=== PATIENT | male | born 1955 | race Caucasian/White ===

== ENCOUNTER 2016-12-26 08:24 | Emergency (ER) | payer OTHER ==
[~2016-12-26] VITALS: Ht 177.8 cm; Wt 75.4 kg
[~2016-12-26 08:24] MED LIST: ALBU.5I NEB; CLAR250T PO; HYDR-3535 PO; IBUP-232 PO; XANA1TAB2 PO; ZITH250T PO
[2016-12-26 08:33] VITALS: BP 86/63; PULSE 84; RESP 16; TEMP 97.3; O2SAT 96
[2016-12-26] MEDS ORDERED: SODIUM CHLOR 0.9% 1000 ML INJ 1,000 ML IV ONE (09:00)
--- NOTE | 2016-12-26 09:29 | PD ---
HPI Chief Complaint: Skin Problem Time Seen by Provider: 08:38 Travel History International Travel<30 days: No Contact w/Intl Traveler<30days: No Traveled to known affect area: No History of Present Illness HPI This is a 61-year-old male who has a history of a chronic JMUA infection of the lungs for which he has had multiple surgeries including a lobectomy and a lower flap reconstruction at [facility] who presents to the emergency department with drainage from his chest wall. He says that his most recent surgery was over a year ago with cardiothoracic surgery at [facility]. He's been on antibiotics ever since he had his surgery. He says that last evening he felt some fullness in his right back and then this morning he woke up with M pus all over his shirt. He does say he's been sweaty for the past 3 nights. He denies any severe pain or increasing shortness of breath. PFSH Past Medical History Arthritis: Yes Anxiety: Yes Depression: Yes Cancer: No Cardiovascular Problems: No High Cholesterol: Yes COPD: Yes Diabetes: No Diminished Hearing: No Endocrine: No Gastrointestinal Disorders: Yes (REFLUX) Genitourinary: Yes (difficulty urinating at night,) Hepatitis: No Hiatal Hernia: No Hypertension: No Immune Disorder: No Implanted Vascular Access Dvce: No Musculoskeletal: Yes ( ) Neurologic: No Psychiatric: Yes (ANXIETY, DEPRESSION,claustophobia) Reproductive: No Respiratory: Yes (LOBECTOMY RIGHT UPPER ) Immunizations Current: Yes Thyroid Disease: No Past Surgical History AICD: No Body Medical Devices: RIGHT CHEST TUBE Joint Replacement: No Oral Surgery: Yes Pacemaker: No Thoracic Surgery: Yes (R UPPER LOBECTOMY, CHEST TUBE,right lung infection I & D ) Other Surgery: Yes (right upper lobectomy. ) Social History Alcohol Use: No (WINE EVERY NIGHT 1/2 gallon) Tobacco Use: No (quit JUL 2012) Substance Use: No Allergies-Medications (Allergen,Severity, Reaction): Coded Allergies: No Known Allergies (Verified , 12/26/16) Reported Meds & Prescriptions Reported Meds & Active Scripts Active Reported Azithromycin 500 Mg Tab 500 Mg PO DAILY Sivextro (Tedizolid Phosphate) 200 Mg Tab 200 Mg PO DAILY Clofazimine (Bulk) 1 Powd Review of Systems Except as stated in HPI: all other systems reviewed are Neg Physical Exam Narrative GENERAL:Well appearing, no acute distress SKIN: Small 1 cm opening in the right upper back between 2 ribs spaces with copious purulent drainage particularly when the patient coughs and exhales. No surrounding fluctuance or induration. HEAD: Atraumatic. Normocephalic. EYES: Pupils equal and round. No injection or drainage. ENT: Moist mucous membranes NECK: Trachea midline. CARDIOVASCULAR: Regular rate and rhythm. No murmur appreciated. RESPIRATORY: Clear to auscultation. Breath sounds equal bilaterally. GASTROINTESTINAL: Abdomen soft, non-tender, nondistended. MUSCULOSKELETAL: No obvious deformities. NEUROLOGICAL: Awake and alert. No obvious cranial nerve deficits. Moving all extremities. PSYCHIATRIC: Appropriate mood and affect; insight and judgment normal. Data Data Last Documented VS Vital Signs Date Time Temp Pulse Resp B/P Pulse Ox O2 Delivery O2 Flow Rate FiO2 12/26/16 13:27 68 18 86/40 97 Room Air 12/26/16 08:33 97.3 Orders Complete Blood Count With Diff (12/26/16 08:52) Comprehensive Metabolic Panel (12/26/16 08:52) Prothrombin Time / Inr (Pt) (12/26/16 08:52) Act Partial Throm Time (Ptt) (12/26/16 08:52) Lactic Acid Sepsis Protocol (12/26/16 08:52) Urinalysis - C+S If Indicated (12/26/16 08:52) Blood Culture (12/26/16 08:52) Chest, Single Ap (12/26/16 08:52) Blood Glucose (12/26/16 08:52) Ecg Monitoring (12/26/16 08:52) Iv Access Insert/Monitor (12/26/16 08:52) Oximetry (12/26/16 08:52) Oxygen Administration (12/26/16 08:52) Sodium Chlor 0.9% 1000 Ml Inj (Ns 1000 M (12/26/16 09:00) Wound Culture And Gram Stain (12/26/16 09:26) Vancomycin Inj (Vancomycin Inj) (12/26/16 09:30) Ct Thorax/ Chest W Iv Contrast (12/26/16 ) Cefepime Inj (Maxipime Inj) (12/26/16 09:30) Iohexol 350 Inj (Omnipaque 350 Inj) (12/26/16 10:38) Labs Laboratory Tests Test 12/26/16 12/26/16 09:25 10:49 White Blood Count 5.8 TH/MM3 Red Blood Count 3.57 MIL/MM3 Hemoglobin 9.9 GM/DL Hematocrit 31.1 % Mean Corpuscular Volume 87.2 FL Mean Corpuscular Hemoglobin 27.8 PG Mean Corpuscular Hemoglobin 31.9 % Concent Red Cell Distribution Width 15.3 % Platelet Count 298 TH/MM3 Mean Platelet Volume 7.7 FL Neutrophils (%) (Auto) 74.9 % Lymphocytes (%) (Auto) 10.2 % Monocytes (%) (Auto) 11.1 % Eosinophils (%) (Auto) 3.2 % Basophils (%) (Auto) 0.6 % Neutrophils # (Auto) 4.4 TH/MM3 Lymphocytes # (Auto) 0.6 TH/MM3 Monocytes # (Auto) 0.6 TH/MM3 Eosinophils # (Auto) 0.2 TH/MM3 Basophils # (Auto) 0.0 TH/MM3 CBC Comment DIFF FINAL Differential Comment Prothrombin Time 12.6 SEC Prothromb Time International 1.1 RATIO Ratio Activated Partial 31.8 SEC Thromboplast Time Sodium Level 136 MEQ/L Potassium Level 3.4 MEQ/L Chloride Level 98 MEQ/L Carbon Dioxide Level 28.2 MEQ/L Anion Gap 10 MEQ/L Blood Urea Nitrogen 7 MG/DL Creatinine 0.93 MG/DL Estimat Glomerular Filtration 82 ML/MIN Rate Random Glucose 97 MG/DL Lactic Acid Level 1.6 mmol/L Calcium Level 8.3 MG/DL Total Bilirubin 0.8 MG/DL Aspartate Amino Transf 26 U/L (AST/SGOT) Alanine Aminotransferase 23 U/L (ALT/SGPT) Alkaline Phosphatase 127 U/L Total Protein 6.6 GM/DL Albumin 2.5 GM/DL Urine Collection Type CATH Urine Color YELLOW Urine Turbidity CLEAR Urine pH 6.0 Urine Specific [place] 1.011 Urine Protein NEG mg/dL Urine Glucose (UA) NEG mg/dL Urine Ketones NEG mg/dL Urine Occult Blood NEG Urine Nitrite NEG Urine Bilirubin NEG Urine Leukocyte Esterase NEG Urine RBC 0-3 /hpf Urine Squamous Epithelial 0-5 /hpf Cells Urine Renal Epithelial Cells 0-5 /hpf Microscopic Urinalysis Comment CATH-CULT NOT IND Urine Collection Time 10:49 [facility] Medical Decision Making Medical Screen Exam Complete: Yes Emergency Medical Condition: Yes Interpretation(s) Afebrile, blood pressure is low, no tachycardia No leukocytosis Anemia Mild hypokalemia Lactic acid is 1.6 Urinalysis: Negative for infection Last 24 hours Impressions Chest X-Ray 12/26/16 0852 Signed Impressions: Service Date/Time: Saturday, December 26, 2016 09:14 - CONCLUSION: 1. 4.7 x 4.3 cm mass in the right mid lung region containing an air-fluid level. Difficult to ascertain whether this is intra-or extrathoracic on single AP view. Differential considerations include soft tissue abscess versus lung abscess/mass. 2. Streaky right lower lobe airspace disease and probable trace pleural effusion. 3. Stable post surgical features of right upper lobectomy Jeyson Mueller MD Chest CT 12/26/16 0000 Signed Impressions: Service Date/Time: Saturday, December 26, 2016 10:16 - CONCLUSION: 1. Evidence of interval surgery on the right. 2. Cavity with air-fluid level again seen in the right upper hemithorax. This is extraparenchymal. Unchanged in size. 3. Old granulomatous disease. 4. New focal areas of tree in bud opacity in the lingula and lower lobe on the left. Initial diagnosis includes atypical mycobacterial infection and chronic aspiration. 5. New atelectasis in the right middle lobe. 6. Moderate left upper lobe emphysema unchanged. Landen Salazar MD Differential Diagnosis Abscess, sepsis, pneumonia, empyema Narrative Course This is a 61-year-old male who presents to the emergency department with a complex medical history. He was seen at [facility] and was diagnosed with an JUMA infection had a lobectomy and then subsequently had 9 months of intrapleural antibiotic therapy. He had a lesser flap performed at [facility] and since then has been doing well but has been maintain on chlorpromazine, suspect stroke and azithromycin. Yesterday evening he developed purulent drainage from his right upper back. On exam he has a centimeter defect which expresses pus when he inhales or coughs. He is hypotensive but otherwise vital signs are reassuring and he has no leukocytosis. Labs are obtained which were all reassuring. CT imaging demonstrates an extra parenchymal fluid collection which is concerning for reoccurrence of the patient's empyema. I spoke to who is the patient's toll line mechanic at [facility]. He agrees that the patient should be transported to [facility] for further management. I discussed this with the patient and he adamantly wants to transport himself. I expressed a lot of concern regarding his blood pressure as he could rapidly become septic in the setting of empyema. He says he understands this and he still wants to transport himself. He says "if I then that'll be my time, I only have about 2 years to live anyway". I think the patient is able to make his own decisions. He was given copies of his paperwork, imaging study and hopefully will transport himself right up to [facility]. Diagnosis Primary Impression: Lung infection Patient Instructions: General Instructions Additional Instructions: It is very important that you follow-up at [facility] in the emergency department immediately. We already discussed her case with Dr. Mendoza and Dr. Perez Med/Other Pt SpecificInfo: No Change to Meds Disposition: 01 DISCHARGE HOME Condition: Stable Marissa Orozco MD December 26, 2016 09:29
[2016-12-26] MEDS ORDERED: CEFEPIME INJ 2,000 MG in SODIUM CHLORIDE 0.9% INJ 100 ML IV ONE (09:30)
[2016-12-26] MEDS ORDERED: VANCOMYCIN INJ 1,150 MG in SODIUM CHLOR 0.9% 250 ML INJ 250 ML IV ONE (09:30)
[2016-12-26 09:44] LABS: AUTOMATED NEUTROPHIL # 4.4 TH/MM3 (1.8-7.7); BASOPHIL % 0.6 % (0.0-2.0); EOSINOPHIL # 0.2 TH/MM3 (0-0.4); EOSINOPHIL % 3.2 % (0.0-4.0); HEMATOCRIT 31.1 % (39.0-51.0); HEMO FLAGS DIFF FINAL; LYMPH % 10.2 % (9.0-44.0); LYMPHOCYTE # 0.6 TH/MM3 (1.0-4.8); MEAN CELL VOLUME 87.2 FL (80.0-100.0); MEAN CORPUSCULAR HEMOGLOBIN 27.8 PG (27.0-34.0); MEAN CORPUSCULAR HGB CONC 31.9 % (32.0-36.0); MONO % 11.1 % (0.0-8.0); NEUT % 74.9 % (16.0-70.0); PLATELET COUNT 298 TH/MM3 (150-450); RED BLOOD COUNT 3.57 MIL/MM3 (4.50-5.90); RED CELL DISTRIBUTION WIDTH 15.3 % (11.6-17.2); WHITE BLOOD COUNT 5.8 TH/MM3 (4.0-11.0)
--- NOTE | 2016-12-26 09:46 | RADHPO ---
EXAM DATE/TIME: 12/26/2016 09:14 [facility] COMPARISON: CHEST SINGLE AP, April 26, 2013, 7:39. INDICATIONS : Fever, abscess on upper back. MEDICAL HISTORY : Emphysema. SURGICAL HISTORY : right lobectomy ENCOUNTER: Initial ACUITY: 3 days PAIN SCORE: 3/10 LOCATION: Bilateral chest FINDINGS: Postsurgical features of prior right upper lobectomy are again noted. There is a poorly defined appro ximately 4.7 x 4.3 cm masslike density in the right mid lung which appears to contain an air-fluid le elise. Streaky airspace disease is noted in the right lower lobe. Left lung is clear. Cardiomediastinal contours are grossly stable. Remainder of the exam is unchanged. CONCLUSION: 1. 4.7 x 4.3 cm mass in the right mid lung region containing an air-fluid level. Difficult to ascerta in whether this is intra-or extrathoracic on single AP view. Differential considerations include soft tissue abscess versus lung abscess/mass. 2. Streaky right lower lobe airspace disease and probable trace pleural effusion. 3. Stable post surgical features of right upper lobectomy Jeyson Mueller MD on December 26, 2016 at 9:36 Board Certified Radiologist. This report was verified electronically.
[2016-12-26 09:54] LABS: APTT (PATIENT) 31.8 SEC (24.3-30.1); INTERNATIONAL NORMALIZED RATIO 1.1 RATIO; PROTHROMBIN TIME - PATIENT 12.6 SEC (9.8-11.6)
[2016-12-26 09:55] LABS: CHLORIDE 98 MEQ/L (98-107); POTASSIUM 3.4 MEQ/L (3.5-5.1); SODIUM (NA) 136 MEQ/L (136-145)
[2016-12-26 10:02] LABS: ANION GAP 10 MEQ/L (5-15); BICARBONATE 28.2 MEQ/L (21.0-32.0)
[2016-12-26 10:05] LABS: ALT (GPT) 23 U/L (12-78); GLOMERULAR FILTRATION RATE 82 ML/MIN (>89)
[2016-12-26 10:07] LABS: TOTAL BILIRUBIN ADULT 0.8 MG/DL (0.2-1.0)
[2016-12-26 10:08] LABS: ALKALINE PHOSPHATASE 127 U/L (45-117); AST (GOT) 26 U/L (15-37)
[2016-12-26 10:11] LABS: BLOOD UREA NITROGEN 7 MG/DL (7-18)
[2016-12-26] MEDS ORDERED: IOHEXOL 350 MG/ML 10 ML VIAL (for RAD DIAG) IV ONE (10:38)
[2016-12-26 10:57] LABS: BLOOD, URINE NEG (NEG); GLUCOSE,URINE NEG (NEG); KETONE, URINE NEG (NEG); NITRITE,URINE NEG (NEG)
[2016-12-26 11:06] LABS: METHOD OF COLLECTION CATH; URINE COLOR YELLOW (YELLW/STRAW)
[2016-12-26 11:07] LABS: COMMENT (UR) CATH-CULT NOT IND; CULTURE IF INDICATED CATH CULTURE NOT IND; RBC, URINE 0-3 /hpf (0-3); RENAL EPITHELIAL CELLS 0-5 /hpf; SQUAMOUS EPITHELIAL CELL URINE 0-5 /hpf (0-5)
--- NOTE | 2016-12-26 11:33 | RADHPO ---
EXAM DATE/TIME: 12/26/2016 10:16 [facility] COMPARISON: CT THORAX W/O CONTRAST, July 21, 2013, 12:36. INDICATIONS : Cough, shortness of breath. IV CONTRAST: 70 cc Omnipaque 350 (iohexol) IV RADIATION DOSE: 10.60 CTDIvol (mGy) MEDICAL HISTORY : Chronic obstructive pulmonary disease. History of JUMA lung disease SURGICAL HISTORY : Lobectomy. ENCOUNTER: Initial ACUITY: 1 day PAIN SCALE: 0/10 LOCATION: chest TECHNIQUE: Volumetric scanning of the chest was performed. Using automated exposure control and adjustment of t he mA and/or kV according to patient size, radiation dose was kept as low as reasonably achievable to obtain optimal diagnostic quality images. FINDINGS: LUNGS: Large cavity is again identified at the right lung apex. This is unchanged in size compared to the pr ior study of 07/21/2013. Air-fluid level is again seen within the cavity. New adjacent extraparenchym al scarring/fat density is identified, likely representing postsurgical change. New anterior right mi ddle lobe volume loss/atelectasis. Calcified granulomas again seen in the right lower lobe. Rounded a telectasis in the posterior right lower lobe has increased in size. Multiple calcified granulomas in the left lung. Moderate severity left upper lobe pulmonary parenchymal emphysema. Mild tree in bud op acity in the lateral aspect of the lingula is new. Mild tree in bud opacity in the posterior left low er lobe is new. MEDIASTINUM: Coronary artery calcification. Shift of the mediastinum to the right. AXILLAE: Within normal limits. No lymphadenopathy. SKELETAL: Postsurgical findings in the right-sided ribs. MISCELLANEOUS: Upper abdomen unremarkable. CONCLUSION: 1. Evidence of interval surgery on the right. 2. Cavity with air-fluid level again seen in the right upper hemithorax. This is extraparenchymal. Un changed in size. 3. Old granulomatous disease. 4. New focal areas of tree in bud opacity in the lingula and lower lobe on the left. Initial diagnosi s includes atypical mycobacterial infection and chronic aspiration. 5. New atelectasis in the right middle lobe. 6. Moderate left upper lobe emphysema unchanged. Landen Salazar MD on December 26, 2016 at 11:23 Board Certified Radiologist. This report was verified electronically.
[2016-12-26] MEDS ORDERED: [UNRECOGNIZED DRUG - CODE] (13:25)
[2016-12-26] MEDS ORDERED: TEDI1TAB PO (13:25)
[2016-12-26] MEDS ORDERED: AZIT500T2 PO (13:25)
[2016-12-26 13:27] VITALS: BP 86/40; PULSE 68; RESP 18; O2SAT 97
== END 2016-12-26 14:37 | disposition home or self-care (01) ==
LOC: PHED 08:24
DX: A31.9 Mycobacterial infection, unspecified (principal); J98.11 Atelectasis; J43.9 Emphysema, unspecified; D64.9 Anemia, unspecified; E87.6 Hypokalemia; J44.9 Chronic obstructive pulmonary disease, unspecified; M19.90 Unspecified osteoarthritis, unspecified site; E78.00 Pure hypercholesterolemia, unspecified; K21.9 Gastro-esophageal reflux disease without esophagitis
CPT/HCPCS: 71010; 71260; 80053; 81001; 83605; 85025; 85610; 85730; 87040; 87070; 96365; 96367; 99285; J0692; J3370; J7030; J7050; Q9967

== ENCOUNTER → 2017-01-24 | Outpatient (CLI) | payer OTHER ==
[~2017-01-24] MED LIST changes: -ALBU.5I NEB; +AZIT500T2 PO; -CLAR250T PO; -HYDR-3535 PO; -IBUP-232 PO; +TEDI1TAB PO; -XANA1TAB2 PO; -ZITH250T PO; +[UNRECOGNIZED DRUG - CODE]
[2017-01-24 13:09] LABS: BLOOD GAS BASE EXCESS -0.3 mmol/L (-2-2); BLOOD GAS CARBOXYHEMOGLOBIN 1.6 % (0-4); BLOOD GAS HCO3 23 mmol/L (22-26); BLOOD GAS METHEMOGLOBIN 1.3 % (0-2); BLOOD GAS O2 HGB SATURATION 94 % (90-100); BLOOD GAS OXYGEN CONTENT 12.4 Vol % (12.0-20.0); BLOOD GAS PCO2 35 mmHg (38-42); BLOOD GAS PO2 97 mmHg (61-120); BLOOD GAS TOTAL HGB 9.3 G/DL (12.0-16.0); CRITICAL VALUE NO; DRAW SITE RT RADIAL; FIO2 21 %; NUMBER OF ARTERIAL PUNCTURES 1; STAT NO; TEMP CORR TO 98.6; ULNAR PULSE PRESENT
--- NOTE | 2017-02-01 10:00 | RSPPFT ---
DATE OF PROCEDURE: 01/24/17 COMMENTS: Spirometry shows FVC of 2.6 at 57% of predicted, FEV1 of 1.5 at 42%, FEV1/FVC ratio is decreased. Flow is decreased at FEF 25, FEF 50, FEF 75 and FEF 25-75. There is no significant response after bronchodilator treatment. Lung volumes show residual volume is increased. TLC is decreased. Diffusion capacity is severely decreased. Flow volume loop indicates an obstructive pattern. 6-minute walk test shows no de-saturation. IMPRESSION: 1. Moderately severe obstructive lung disease. 2. No response after bronchodilator treatment. 3. Lung volumes show hyperinflation. 4. Severe loss in diffusion capacity. 5. 6-minute walk test shows no de-saturation.
== END ==
LOC: HRSP 12:11
PROVIDERS: ATTEND Specialist
DX: J44.9 Chronic obstructive pulmonary disease, unspecified (principal)
CPT/HCPCS: 36600; 82805; 94060; 94620; 94726; 94729

== ENCOUNTER 2017-03-14 23:01 | Emergency (ER) | payer OTHER ==
[~2017-03-14] VITALS: Ht 177.8 cm; Wt 75.0 kg
[2017-03-14 23:10] VITALS: BP 96/63; PULSE 82; RESP 20; TEMP 99.4; O2SAT 96
[2017-03-14] MEDS ORDERED: SODIUM CHLORIDE 0.9% FLUSH 10 ML FLUSH IVF PRN (23:30)
--- NOTE | 2017-03-14 23:47 | PD ---
HPI . Bleeding from chest wall Chief Complaint: Bleeding Time Seen by Provider: 23:08 Travel History International Travel<30 days: No Contact w/Intl Traveler<30days: No Traveled to known affect area: No History of Present Illness HPI This patient presents with the chief complaint of bleeding from his right chest. Onset was today. The bleeding has been mild. It is exacerbated by coughing or sneezing. No fever. This patient is an extremely poor historian. He has a long history of JUMA in his right lung. He has had a previous lobectomy. He treated with a 9 month course of an intrapleural antibiotics. He is followed closely by pulmonology, infectious disease and cardiothoracic surgery at [facility]. He states that he was most recently seen by his infectious disease doctor 2 days ago. This patient was here on December 26 with the chief complaint of purulent drainage from his right posterior chest wall. He was subsequently transferred to [facility] and was reportedly hospitalized there for 15 days. PFSH Past Medical History Arthritis: Yes Anxiety: Yes Depression: Yes Cancer: No Cardiovascular Problems: No High Cholesterol: Yes COPD: Yes Diabetes: No Diminished Hearing: No Endocrine: No Gastrointestinal Disorders: Yes (REFLUX) Genitourinary: Yes (difficulty urinating at night,) Hepatitis: No Hiatal Hernia: No Hypertension: No Immune Disorder: No Implanted Vascular Access Dvce: No Musculoskeletal: Yes ( ) Neurologic: No Psychiatric: Yes (ANXIETY, DEPRESSION,claustophobia) Reproductive: No Respiratory: Yes Immunizations Current: Yes Thyroid Disease: No Past Surgical History AICD: No Body Medical Devices: RIGHT CHEST TUBE Joint Replacement: No Oral Surgery: Yes Pacemaker: No Thoracic Surgery: Yes (R UPPER LOBECTOMY, CHEST TUBE,right lung infection I & D ) Other Surgery: Yes (right upper lobectomy. ) Social History Alcohol Use: No (WINE EVERY NIGHT 1/2 gallon) Tobacco Use: No (quit JUL 2012) Substance Use: No Allergies-Medications (Allergen,Severity, Reaction): Coded Allergies: No Known Allergies (Verified , 03/14/17) Reported Meds & Prescriptions Reported Meds & Active Scripts Active Reported Lortab (Hydrocodone-Acetaminophen) 10-325 Mg Tab 1 Tab PO Q6H PRN Azithromycin 500 Mg Tab 500 Mg PO DAILY Clofazimine (Bulk) 1 Powd Review of Systems ROS Limitations: Poor Historian Except as stated in HPI: all other systems reviewed are Neg General / Constitutional: No: Fever, Chills Cardiovascular: No: Chest Pain or Discomfort Respiratory: Positive: Other (bleeding from the right posterior chest wall), No: Cough, Shortness of Breath Physical Exam Narrative GENERAL: Awake and alert and in no acute distress. He is able to speak in complete sentences without any dyspnea. SKIN: Warm and dry. Surgical scar on the right chest wall. He had a small drop of blood in the surgical scar which appeared to have a bubble in it. HEAD: Atraumatic. Normocephalic. EYES: Pupils equal and round. Extraocular movements are intact. ENT: No nasal bleeding or discharge. Mucous membranes pink and moist. NECK: Trachea midline. Neck is supple. CARDIOVASCULAR: Regular rate and rhythm. RESPIRATORY: No accessory muscle use. Good breath sounds on the left. Diminished breath sounds on the right. His right chest wall as deformities compatible with the previous lobectomy. GASTROINTESTINAL: Abdomen soft, non-tender, nondistended. MUSCULOSKELETAL: No obvious deformities. No edema. NEUROLOGICAL: Awake and alert. No obvious cranial nerve deficits. Motor grossly within normal limits. Normal speech. PSYCHIATRIC: Appropriate mood and affect; insight and judgment normal. Data Data Last Documented VS Vital Signs Date Time Temp Pulse Resp B/P Pulse Ox O2 Delivery O2 Flow Rate FiO2 03/15/17 00:22 75 18 94/65 97 Room Air 03/14/17 23:10 99.4 Orders Sodium Chloride 0.9% Flush (Ns Flush) (03/14/17 23:30) Chest, Pa & Lat (03/14/17 23:49) [facility] Medical Decision Making Medical Screen Exam Complete: Yes Emergency Medical Condition: Yes Medical Record Reviewed: Yes (the patient was seen here on 12/26 with similar complaints. At that time, he had purulent drainage. Tonight he has bloody drainage. Nonetheless, from this record I was able to learn that he has a history of JUMA and is status post lobectomy and a 9 month treatment of intraoral antibiotics. CT done on 12/26 showed an empyema and he was subsequently transferred back to [facility].) Differential Diagnosis Differential diagnosis includes but is not limited to include coagulopathy, fistula, hemopneumothorax Narrative Course Patient presented with bleeding from his right posterior chest wall. Workup was ordered but patient refused. The only thing that he has agreed to his a chest x-ray. Last Impressions Chest X-Ray 03/14/17 1300 Signed Impressions: Service Date/Time: Wednesday, March 15, 2017 00:04 - CONCLUSION: 1. Stable deformity and volume loss of the right hemithorax with postoperative changes characteristic of prior upper lobectomy. 2. Airspace process in the right mid lung seen previously actually shows interval improvement. Scattered areas of pleural thickening and possible small right-sided effusion. 3. Patchy nodular densities in the left perihilar distribution are stable and probably postinflammatory. Stable emphysematous changes in the left upper lung.. Aric Sullivan MD The chest x-ray was independently viewed by me. The patient will be discharged with instructions to follow-up at [facility] Diagnosis Primary Impression: Bleeding Disposition: 01 DISCHARGE HOME Condition: Stable Danette Goodman MD Mar 14, 2017 23:47
[2017-03-14] MEDS ORDERED: HYDR-3535 PO (23:53)
[2017-03-15 00:22] VITALS: BP 94/65; PULSE 75; RESP 18; O2SAT 97
--- NOTE | 2017-03-15 01:19 | RADRPT ---
EXAM DATE/TIME: 03/15/2017 00:04 [facility] COMPARISON: CT THORAX W CONTRAST, December 26, 2016, 10:16. CHEST SINGLE AP, December 26, 2016, 9:14. INDICATIONS : Patient complain of pain, bleeding from old right chest tube sight. Patient has been coughing up bloo d for 3 hours. MEDICAL HISTORY : Emphysema. Chronic obstructive pulmonary disease. JUMA Infection SURGICAL HISTORY : Right upper lobectomy, Prev. right sided chest tube ENCOUNTER: Initial ACUITY: 1 day PAIN SCORE: 5/10 LOCATION: Right posterior chest FINDINGS: PA and lateral views of the chest demonstrate persistent volume loss and deformity of the right hemit horax dense consolidation previously seen in the right mid chest actually shows interval improvement. Absent pulmonary markings in the right upper lobe suggest a parenchymal void with some regional pleu ral thickening and possible pleural effusion. Stable patchy nodular densities in the left perihilar d istribution are probably postinflammatory. Stable emphysematous changes in the left upper lung. Lungs are otherwise clear. Heart size is normal. Osseous structures are grossly intact. CONCLUSION: 1. Stable deformity and volume loss of the right hemithorax with postoperative changes characteristic of prior upper lobectomy. 2. Airspace process in the right mid lung seen previously actually shows interval improvement. Scatte red areas of pleural thickening and possible small right-sided effusion. 3. Patchy nodular densities in the left perihilar distribution are stable and probably postinflammato ry. Stable emphysematous changes in the left upper lung.. Aric Sullivan MD on March 15, 2017 at 1:13 Board Certified Radiologist. This report was verified electronically.
[2017-03-15 01:45] VITALS: BP 99/67; PULSE 70; RESP 18; TEMP 97.5; O2SAT 99
== END 2017-03-15 02:06 | disposition home or self-care (01) ==
LOC: PHED 23:01
DX: R58 Hemorrhage, not elsewhere classified (principal)
CPT/HCPCS: 71020; 99283

== ENCOUNTER 2017-08-23 17:52 | Emergency (ER) | payer OTHER ==
[~2017-08-23] VITALS: Ht 177.8 cm; Wt 68.0 kg
[~2017-08-23 17:52] MED LIST changes: +HYDR-3535 PO; -TEDI1TAB PO
[2017-08-23] MEDS ORDERED: [UNRECOGNIZED DRUG - CODE] PO (18:08)
[2017-08-23 18:10] VITALS: BP 93/58; PULSE 92; RESP 16; O2SAT 98
[2017-08-23] MEDS ORDERED: DOCU100C15 PO (19:00)
[2017-08-23] MEDS ORDERED: VORI200T6 PO (19:00)
--- NOTE | 2017-08-23 19:02 | PD ---
HPI Chief Complaint: Wound/Suture/Staple Re-Check Time Seen by Provider: 18:12 Travel History International Travel<30 days: No Contact w/Intl Traveler<30days: No Traveled to known affect area: No History of Present Illness HPI 62-year-old male brought in from [facility] via ambulance with complicated wound to the right posterior thorax. Patient was seen in [facility] with history of PYOTHORAX without fistula, drained by their surgeons, and transferred to [facility] yesterday for outpatient rehabilitation care. Patient is under contact and droplet precautions. Patient has a large incision at the right back below the scapula which is required to have packing removed and irrigation with 1-2 L of saline daily. After irrigation the patient is to lean backwards to allow fluid to drain, and a large stamp dressing is to be packed into the chest wall anteriorly towards the apex which requires a ring forceps to pack the entire wound. Both incisions are to be covered with abdominal pad dressings which should be drainage twice daily. Medications are as written. The nursing facility felt that they were unable to perform this level of wound care at their facility which is why he was transferred here. Patient is otherwise stable and has no acute complaints. He has no known drug allergies. PFSH Past Medical History Arthritis: Yes Anxiety: Yes Depression: Yes Cancer: No Cardiovascular Problems: No High Cholesterol: Yes COPD: Yes Diabetes: No Diminished Hearing: No Endocrine: No Gastrointestinal Disorders: Yes (REFLUX) Genitourinary: Yes (difficulty urinating at night, enlarged prostate ) Hepatitis: No Hiatal Hernia: No Hypertension: No Immune Disorder: No Implanted Vascular Access Dvce: No Neurologic: No Psychiatric: Yes (claustophobia) Reproductive: No Respiratory: Yes Immunizations Current: Yes Thyroid Disease: No Past Surgical History AICD: No Body Medical Devices: RIGHT CHEST TUBE Joint Replacement: No Oral Surgery: Yes Pacemaker: No Thoracic Surgery: Yes (R UPPER LOBECTOMY, CHEST TUBE,right lung infection I & D ) Other Surgery: Yes (right upper lobectomy, Elloesser flap, right lung biopsy) Social History Alcohol Use: No Tobacco Use: No (quit JUL 2012) Substance Use: No Allergies-Medications (Allergen,Severity, Reaction): Coded Allergies: No Known Allergies (Verified Adverse Reaction, Unknown, 08/23/17) Reported Meds & Prescriptions Reported Meds & Active Scripts Active Reported Voriconazole 200 Mg Tab 200 Mg PO Q12H Docusate Sodium 100 Mg Cap 100 Mg PO BID Clofazimine 1 Gm Powder 50 PO Review of Systems ROS Limitations: Clinical Condition, Poor Historian Except as stated in HPI: all other systems reviewed are Neg General / Constitutional: No: Fever, Chills Eyes: No: Visual changes HENT: No: Headaches Cardiovascular: No: Chest Pain or Discomfort Respiratory: No: Shortness of Breath Gastrointestinal: No: Abdominal Pain Genitourinary: No: Dysuria Musculoskeletal: No: Pain Skin: No Rash Neurologic: No: Weakness Psychiatric: No: Depression Endocrine: No: Polydipsia Hematologic/Lymphatic: No: Easy Bruising Physical Exam Narrative GENERAL: Patient appears well medicated but oriented to person and place. SKIN: Warm and dry. Normal color. Normal turgor. Patient has a large open wound with good granulation tissue to the posterior right thorax, with small amount of purulent drainage noted. There is no significant erythema or obvious cellulitis. Packing is removed and replaced by myself as per discharge instructions from [facility] with nursing help. HEAD: Atraumatic. Normocephalic. EYES: Pupils equal and round. No scleral icterus. No injection or drainage. ENT: No nasal bleeding or discharge. Mucous membranes pink and moist. Pharynx is clear. Airway is patent. NECK: Trachea midline. Supple. CARDIOVASCULAR: Regular rate and rhythm. RESPIRATORY: No accessory muscle use. Clear to auscultation. Breath sounds equal bilaterally. GASTROINTESTINAL: Abdomen soft, non-tender, nondistended. Hepatic and splenic margins not palpable. MUSCULOSKELETAL: Extremities without clubbing, cyanosis, or edema. No obvious deformities. NEUROLOGICAL: Awake and alert. No obvious cranial nerve deficits. Motor grossly within normal limits. Five out of 5 muscle strength in the arms and legs. Normal speech. PSYCHIATRIC: Appropriate mood and affect; insight and judgment normal. Data Data Last Documented VS Vital Signs Date Time Temp Pulse Resp B/P (MAP) Pulse Ox O2 Delivery O2 Flow Rate FiO2 08/23/17 18:10 92 16 93/58 (70) 98 MDM Medical Decision Making Medical Screen Exam Complete: Yes Emergency Medical Condition: Yes Medical Record Reviewed: Yes Differential Diagnosis Patient status post I&D PYOTHORAX without fistula. Need for daily wound care. Need for appropriate usp facility placement. Narrative Course Patient has IV in the right forearm. No labs ordered at this time. Wound is unpacked, irrigated and repacked per instructions from [facility] by myself and nursing staff. Patient is to return to [facility], and proper shelter placement should be arranged by their case management. Patient can return to emergency department for dressing changes if necessary in the interim. Diagnosis Primary Impression: Pyothorax without fistula Additional Impression: Encounter for postoperative wound care Patient Instructions: General Instructions Additional Instructions: Patient has IV in the right forearm. No labs ordered at this time. Wound is unpacked, irrigated and repacked per instructions from [facility] by myself and nursing staff. Patient is to return to [facility], and proper shelter placement should be arranged by their case management. Patient can return to emergency department for dressing changes if necessary in the interim. Med/Other Pt SpecificInfo: No Change to Meds Disposition: 01 DISCHARGE HOME Condition: Stable Adilson Charles Aug 23, 2017 19:02
[2017-08-23 19:04] VITALS: TEMP 98
[2017-08-23] MEDS ORDERED: ALBU6.7H INH (19:04)
[2017-08-23] MEDS ORDERED: TAMS5CAP PO (19:04)
[2017-08-23] MEDS ORDERED: DOXY1TAB6 PO (19:04)
[2017-08-23] MEDS ORDERED: OXYC1CAP PO (19:04)
[2017-08-23] MEDS ORDERED: SPIRCAP INH (19:04)
[2017-08-23] MEDS ORDERED: ALPR1TAB3 PO (19:04)
[2017-08-23] MEDS ORDERED: CHEL50TA (19:04)
[2017-08-23] MEDS ORDERED: FERR325T18 PO (19:04)
[2017-08-23] MEDS ORDERED: AZIT500T2 PO (19:04)
[2017-08-23] MEDS ORDERED: IPRA0.06 EACH NARE (19:04)
[2017-08-23] MEDS ORDERED: ADVA250A INH (19:04)
[2017-08-23 19:22] VITALS: BP 92/60; PULSE 90; O2SAT 95
== END 2017-08-23 23:07 | disposition home or self-care (01) ==
LOC: NEPC 17:52
DX: J86.9 Pyothorax without fistula (principal); Z51.89 Encounter for other specified aftercare; F41.9 Anxiety disorder, unspecified; M19.90 Unspecified osteoarthritis, unspecified site; F32.9 Major depressive disorder, single episode, unspecified; E78.00 Pure hypercholesterolemia, unspecified; J44.9 Chronic obstructive pulmonary disease, unspecified; K21.9 Gastro-esophageal reflux disease without esophagitis; Z79.899 Other long term (current) drug therapy
CPT/HCPCS: 99283

== ENCOUNTER 2018-01-20 17:44 | Inpatient (IN) ==
[2018-01-26] MEDS ORDERED: Naloxone Inj 0.4 MG/ML Vial IV.PUSH PRN (00:01)
[2018-01-26] MEDS ORDERED: Ketorolac Inj 30 MG/ML (IVP) Vial IM PRN (00:01)
[2018-01-26] MEDS ORDERED: Acetaminophen 325 MG Tablet PO PRN ×2 (00:01)
[2018-01-26] MEDS ORDERED: Bisacodyl 10 MG Supp RECTAL PRN (01:00)
[2018-01-26] MEDS ORDERED: Aluminum/Magnesium/Simethacone Susp 30 ML UDC PO PRN (01:00)
[2018-01-26] MEDS: Nystatin Liq 500,000 UNIT/5 ML UDC SWISH-SWAL SCH ×4 (03:37→19:59)
[2018-01-26 05:37] LABS: Chloride 103 meq/L (98-107); Potassium 4.2 meq/L (3.5-5.1); Sodium 137 meq/L (136-145)
[2018-01-26 05:43] LABS: Anion Gap 4 meq/L (5-15); Blood Urea Nitrogen 17 mg/dL (7-18); Calcium 7.6 mg/dL (8.5-10.1); Carbon Dioxide 29.7 meq/L (21.0-32.0); Glucose,Random 104 mg/dL (74-106)
[2018-01-26 05:46] LABS: Glomerular Filtration Rate Greater Than 89 mL/min (>89)
[2018-01-26] MEDS: Vancomycin Inj 1 GM/200 ML PIGGYBACK IV.SIG SCH ×2 (06:08→23:22)
--- NOTE | 2018-01-26 08:04 | P.PNIM ---
Subjective Interval history: Patient seen and evaluated today in follow-up for respiratory failure secondary to pneumonia. No issues overnight. Wound care addressed with patient and nursing team. Hemoglobin has dropped a bit. GI consult appreciated Physical Exam Vital signs: Vital Signs 01/26/18 00:07 01/26/18 01:00 01/26/18 01:01 Temperature Pulse Rate 78 78 82 Respiratory Rate 32 H 31 H 31 H Blood Pressure 108/71 Pulse Oximetry 98 98 99 01/26/18 02:00 01/26/18 02:01 01/26/18 03:00 Temperature Pulse Rate 72 76 72 Respiratory Rate 13 15 26 H Blood Pressure 108/71 102/70 Pulse Oximetry 100 99 98 01/26/18 03:01 01/26/18 04:00 01/26/18 04:01 Temperature 97.3 F L Pulse Rate 76 66 64 Respiratory Rate 25 H 27 H 34 H Blood Pressure 104/71 97/75 L 97/75 L Pulse Oximetry 97 99 99 01/26/18 05:00 01/26/18 05:01 01/26/18 06:00 Temperature Pulse Rate 74 72 68 Respiratory Rate 22 23 25 H Blood Pressure 100/69 Pulse Oximetry 100 98 100 01/26/18 06:01 01/26/18 07:00 01/26/18 07:01 Temperature Pulse Rate 70 66 68 Respiratory Rate 28 H 14 15 Blood Pressure 85/58 L 85/59 L Pulse Oximetry 99 99 98 Intake & Output 01/25/18 01/26/18 01/26/18 18:59 06:59 18:59 Weight 71.7 kg Results - Labs CBC & Chem 7: 01/25/18 06:00 01/26/18 04:25 Labs: Laboratory Results - last 24 hr 01/23/18 01/23/18 01/23/18 16:20 19:12 19:50 WBC RBC Hgb Hct MCV MCH MCHC RDW Plt Count MPV Neut % (Auto) Lymph % (Auto) [place] % (Auto) Eos % (Auto) Baso % (Auto) Neut # (Auto) Lymph # (Auto) [place] # (Auto) Eos # (Auto) Baso # (Auto) CBC Comment Puncture Site RT RADIAL Patient Temperature 98.6 HCO3 25 Base Excess 0.8 O2 Saturation 87 L* ABG pH 7.42 ABG pCO2 39 ABG pO2 63 ABG O2 Content 12.5 ABG Carboxyhemoglobin 0.3 ABG Methemoglobin 0.9 Hemoglobin 10.2 L O2 Delivery Device NASAL CANNULA Liter Flow 4 Sodium Potassium Chloride Carbon Dioxide Anion Gap BUN Creatinine Estimated GFR Random Glucose Calcium Magnesium Troponin I LESS THAN 0.02 L Stl C.difficile Tox PCR NEGATIVE St C. diff Tox Epid 027 PRESUMPTIVE NEGATIVE Vancomycin Trough 01/24/18 01/24/18 01/25/18 04:20 04:20 06:00 WBC 4.9 RBC 2.92 L Hgb 8.7 L Hct 25.8 L MCV 88.5 MCH 29.9 MCHC 33.8 RDW 18.4 H Plt Count 261 MPV 7.5 Neut % (Auto) 83.4 H Lymph % (Auto) 10.1 [place] % (Auto) 6.1 Eos % (Auto) 0.2 Baso % (Auto) 0.2 Neut # (Auto) 4.1 Lymph # (Auto) 0.5 L [place] # (Auto) 0.3 Eos # (Auto) 0.0 Baso # (Auto) 0.0 CBC Comment DIFF FINAL Puncture Site Patient Temperature HCO3 Base Excess O2 Saturation ABG pH ABG pCO2 ABG pO2 ABG O2 Content ABG Carboxyhemoglobin ABG Methemoglobin Hemoglobin O2 Delivery Device Liter Flow Sodium Potassium Chloride Carbon Dioxide Anion Gap BUN Creatinine 0.86 Estimated GFR 90 Random Glucose Calcium Magnesium 2.2 Troponin I Stl C.difficile Tox PCR St C. diff Tox Epid 027 Vancomycin Trough 01/25/18 01/26/18 10:30 04:25 WBC RBC Hgb Hct MCV MCH MCHC RDW Plt Count MPV Neut % (Auto) Lymph % (Auto) [place] % (Auto) Eos % (Auto) Baso % (Auto) Neut # (Auto) Lymph # (Auto) [place] # (Auto) Eos # (Auto) Baso # (Auto) CBC Comment Puncture Site Patient Temperature HCO3 Base Excess O2 Saturation ABG pH ABG pCO2 ABG pO2 ABG O2 Content ABG Carboxyhemoglobin ABG Methemoglobin Hemoglobin O2 Delivery Device Liter Flow Sodium 137 137 Potassium 4.4 4.2 Chloride 103 103 Carbon Dioxide 28.3 29.7 Anion Gap 6 4 L BUN 19 H 17 Creatinine 0.86 0.76 Estimated GFR 90 Greater than 89 Random Glucose 127 H 104 Calcium 8.0 L 7.6 L Magnesium Troponin I Stl C.difficile Tox PCR St C. 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 Per patient recent cultures of the open wound did show MRSA Patient will continue with IV cefepime, vancomycin and azithromycin Follow-up with ID and pulmonary Continue to support emphysematous lungs (2) Anemia Code(s): D64.9 - Anemia, unspecified Status: Acute Plan: Status post 1 unit packed red blood cells Patient with severe iron deficiency status post IV iron infusion Hemoglobin has dropped to 8.7 Possible GI bleed (3) Alcohol dependence Code(s): F10.20 - Alcohol dependence, uncomplicated Status: Acute Plan: Currently stable without signs of withdrawal Xanax as needed (4) COPD exacerbation Code(s): J44.1 - Chronic obstructive pulmonary disease with (acute) exacerbation Status: Acute (5) Hypotension Code(s): I95.9 - Hypotension, unspecified Status: Acute Plan: Stable, and baseline hypotension is tolerated and asymptomatic (6) Malnutrition Code(s): E46 - Unspecified protein-calorie malnutrition Status: Acute Plan: Continue with dietary supplement Dietary and nutritional consult appreciated (7) Urinary retention Code(s): R33.9 - Retention of urine, unspecified Status: Acute (8) Atypical chest pain Code(s): R07.89 - Other chest pain Status: Acute Plan: Likely secondary to GI symptoms Upper endoscopy scheduled Saturday for GI consult Continue Carafate, nystatin, Maalox and Protonix twice daily - Plan Follow clinically Likely home with home health care when stable
[2018-01-26] MEDS ORDERED: IPRATROPIUM NASAL SCH (09:00)
[2018-01-26] MEDS: MethylPREDNISolone Sod Succinate Inj 40 MG/ML Vial IV.PUSH SCH ×2 (09:09→21:30)
[2018-01-26] MEDS: Enoxaparin Inj 40 MG/0.4 ML Syringe SQ SCH ×2 (09:10→09:55)
[2018-01-26] MEDS: Ferrous Sulfate 325 MG Tablet PO SCH (09:11)
[2018-01-26] MEDS: Lactobacillus Acidophilus/L. Spores Tablet PO SCH ×2 (09:11→21:00)
[2018-01-26] MEDS: Azithromycin 250 MG Tablet PO SCH (09:11)
[2018-01-26] MEDS: Sucralfate Liq 1 GM/10 ML UDC PO SCH ×3 (09:35→18:01)
[2018-01-26] MEDS ORDERED: Vancomycin Consult Pharmacy 1 EACH OTHER SCH (14:00)
[2018-01-26] MEDS: Budesonide-Formoterol 160/4.5 MCG 6 GM Inhaler INH SCH ×2 (18:02→20:05)
[2018-01-26] MEDS: Tiotropium Bromide 18 MCG/ACT Inhaler INH SCH (18:02)
--- NOTE | 2018-01-26 20:55 | P.PNGI ---
Subjective Interval history: Feeling better, breathing easier Physical Exam Vital signs: Vital Signs 01/26/18 00:07 01/26/18 01:00 01/26/18 01:01 Temperature Pulse Rate 78 78 82 Respiratory Rate 32 H 31 H 31 H Blood Pressure 108/71 Pulse Oximetry 98 98 99 01/26/18 02:00 01/26/18 02:01 01/26/18 03:00 Temperature Pulse Rate 72 76 72 Respiratory Rate 13 15 26 H Blood Pressure 108/71 102/70 Pulse Oximetry 100 99 98 01/26/18 03:01 01/26/18 04:00 01/26/18 04:01 Temperature 97.3 F L Pulse Rate 76 66 64 Respiratory Rate 25 H 27 H 34 H Blood Pressure 104/71 97/75 L 97/75 L Pulse Oximetry 97 99 99 01/26/18 05:00 01/26/18 05:01 01/26/18 06:00 Temperature Pulse Rate 74 72 68 Respiratory Rate 22 23 25 H Blood Pressure 100/69 Pulse Oximetry 100 98 100 01/26/18 06:01 01/26/18 07:00 01/26/18 07:01 Temperature Pulse Rate 70 66 68 Respiratory Rate 28 H 14 15 Blood Pressure 85/58 L 85/59 L Pulse Oximetry 99 99 98 01/26/18 08:00 01/26/18 08:01 01/26/18 09:00 Temperature Pulse Rate 70 72 76 Respiratory Rate 19 23 64 H Blood Pressure 90/66 L Pulse Oximetry 96 96 83 L 01/26/18 09:01 01/26/18 10:00 01/26/18 10:29 Temperature Pulse Rate 76 72 Respiratory Rate 36 H 43 H Blood Pressure 105/64 Pulse Oximetry 99 95 94 L 01/26/18 11:00 01/26/18 11:06 01/26/18 12:00 Temperature Pulse Rate 76 78 68 Respiratory Rate 31 H 27 H 24 Blood Pressure 98/67 L Pulse Oximetry 100 98 98 01/26/18 13:00 01/26/18 14:00 01/26/18 15:00 Temperature Pulse Rate 76 62 70 Respiratory Rate 27 H 26 H 25 H Blood Pressure Pulse Oximetry 99 96 01/26/18 15:44 01/26/18 16:00 01/26/18 17:00 Temperature Pulse Rate 58 L 62 62 Respiratory Rate 24 21 19 Blood Pressure Pulse Oximetry 100 100 01/26/18 18:00 01/26/18 20:04 01/26/18 20:14 Temperature 97.3 F L Pulse Rate 84 Respiratory Rate 35 H 18 Blood Pressure Pulse Oximetry 95 Intake & Output 01/26/18 01/26/18 01/27/18 06:59 18:59 06:59 Intake Total 600 / 600 780 / 780 Output Total 1025 / 1025 450 / 450 Balance -425 / -425 330 / 330 Weight 67.2 kg Intake: IV 300 / 300 Maxipime Inj 2,000 MG In NS Inj 100 / 100 100 ML @ 200 mls/hr IV.SIG Q8HR MATTHEW Rx#:[id number] Vancomycin Inj 1 gm In 200 ml @ 200 / 200 200 mls/hr IV.SIG Q18H MATTHEW Rx# :[id number] Oral 600 / 600 480 / 480 Output: Urine 450 / 450 Urine Amount (Catheter) 1025 / 1025 Indwelling Urethral Catheter 1025 / 1025 Other: # Bowel Movements 3 0 - Urinary Catheter Management Indwelling Urethral Catheter Cath placed during this visit: no Results - Labs CBC & Chem 7: 01/25/18 06:00 01/26/18 04:25 Laboratory Results - last 24 hr 01/23/18 01/23/18 01/23/18 16:20 19:12 19:50 WBC RBC Hgb Hct MCV MCH MCHC RDW Plt Count MPV Neut % (Auto) Lymph % (Auto) [place] % (Auto) Eos % (Auto) Baso % (Auto) Neut # (Auto) Lymph # (Auto) [place] # (Auto) Eos # (Auto) Baso # (Auto) CBC Comment Puncture Site RT RADIAL Patient Temperature 98.6 HCO3 25 Base Excess 0.8 O2 Saturation 87 L* ABG pH 7.42 ABG pCO2 39 ABG pO2 63 ABG O2 Content 12.5 ABG Carboxyhemoglobin 0.3 ABG Methemoglobin 0.9 Hemoglobin 10.2 L O2 Delivery Device NASAL CANNULA Liter Flow 4 Sodium Potassium Chloride Carbon Dioxide Anion Gap BUN Creatinine Estimated GFR Random Glucose Calcium Magnesium Troponin I LESS THAN 0.02 L Stl C.difficile Tox PCR NEGATIVE St C. diff Tox Epid 027 PRESUMPTIVE NEGATIVE Vancomycin Trough 01/24/18 01/24/18 01/25/18 04:20 04:20 06:00 WBC 4.9 RBC 2.92 L Hgb 8.7 L Hct 25.8 L MCV 88.5 MCH 29.9 MCHC 33.8 RDW 18.4 H Plt Count 261 MPV 7.5 Neut % (Auto) 83.4 H Lymph % (Auto) 10.1 [place] % (Auto) 6.1 Eos % (Auto) 0.2 Baso % (Auto) 0.2 Neut # (Auto) 4.1 Lymph # (Auto) 0.5 L [place] # (Auto) 0.3 Eos # (Auto) 0.0 Baso # (Auto) 0.0 CBC Comment DIFF FINAL Puncture Site Patient Temperature HCO3 Base Excess O2 Saturation ABG pH ABG pCO2 ABG pO2 ABG O2 Content ABG Carboxyhemoglobin ABG Methemoglobin Hemoglobin O2 Delivery Device Liter Flow Sodium Potassium Chloride Carbon Dioxide Anion Gap BUN Creatinine 0.86 Estimated GFR 90 Random Glucose Calcium Magnesium 2.2 Troponin I Stl C.difficile Tox PCR St C. diff Tox Epid 027 Vancomycin Trough 01/25/18 01/26/18 10:30 04:25 WBC RBC Hgb Hct MCV MCH MCHC RDW Plt Count MPV Neut % (Auto) Lymph % (Auto) [place] % (Auto) Eos % (Auto) Baso % (Auto) Neut # (Auto) Lymph # (Auto) [place] # (Auto) Eos # (Auto) Baso # (Auto) CBC Comment Puncture Site Patient Temperature HCO3 Base Excess O2 Saturation ABG pH ABG pCO2 ABG pO2 ABG O2 Content ABG Carboxyhemoglobin ABG Methemoglobin Hemoglobin O2 Delivery Device Liter Flow Sodium 137 137 Potassium 4.4 4.2 Chloride 103 103 Carbon Dioxide 28.3 29.7 Anion Gap 6 4 L BUN 19 H 17 Creatinine 0.86 0.76 Estimated GFR 90 Greater than 89 Random Glucose 127 H 104 Calcium 8.0 L 7.6 L Magnesium Troponin I Stl C.difficile Tox PCR St C. diff Tox Epid 027 Vancomycin Trough 23.8 H Assessment and Plan - Plan Seen and examined, EGD/Dilation tomorrow - Attending Attestation GENERAL: SKIN: Warm and dry. HEAD: Normocephalic. EYES: No scleral icterus. No injection or drainage. NECK: Supple, trachea midline. No JVD or lymphadenopathy. CARDIOVASCULAR: Regular rate and rhythm without murmurs, gallops, or rubs. RESPIRATORY: Breath sounds equal bilaterally. No accessory muscle use. GASTROINTESTINAL: Abdomen soft, non-tender, nondistended. MUSCULOSKELETAL: No cyanosis, or edema. BACK: Nontender without obvious deformity. No CVA tenderness.
[2018-01-26] MEDS: CLOFAZIMINE PO SCH (21:00)
[2018-01-27] MEDS: Sucralfate Liq 1 GM/10 ML UDC PO SCH ×3 (03:57→20:12)
[2018-01-27] MEDS: Lactobacillus Acidophilus/L. Spores Tablet PO SCH ×3 (03:59→20:01)
[2018-01-27] MEDS: Tiotropium Bromide 18 MCG/ACT Inhaler INH SCH (09:41)
[2018-01-27] MEDS: Budesonide-Formoterol 160/4.5 MCG 6 GM Inhaler INH SCH ×2 (09:45→20:03)
[2018-01-27] MEDS: Azithromycin 250 MG Tablet PO SCH (09:50)
[2018-01-27] MEDS: Ferrous Sulfate 325 MG Tablet PO SCH (09:52)
[2018-01-27] MEDS: MethylPREDNISolone Sod Succinate Inj 40 MG/ML Vial IV.PUSH SCH ×2 (09:57→20:00)
[2018-01-27] MEDS: OMEPRAZOLE 20 MG PO SCH (10:10)
[2018-01-27] MEDS: CLOFAZIMINE PO SCH ×2 (10:12→20:05)
--- NOTE | 2018-01-27 11:17 | P.PN ---
Subjective Interval history: Patient seen and evaluated today in follow-up for respiratory failure. Overall improved on 4-6 L. Out of bed. Awaiting GI procedures for further evaluation of patient's complaints of dysphasia and anemia Physical Exam Vital signs: Vital Signs 01/26/18 12:00 01/26/18 13:00 01/26/18 14:00 Temperature Pulse Rate 68 76 62 Respiratory Rate 24 27 H 26 H Blood Pressure Pulse Oximetry 98 99 01/26/18 15:00 01/26/18 15:44 01/26/18 16:00 Temperature Pulse Rate 70 58 L 62 Respiratory Rate 25 H 24 21 Blood Pressure Pulse Oximetry 96 100 01/26/18 17:00 01/26/18 18:00 01/26/18 20:04 Temperature Pulse Rate 62 84 Respiratory Rate 19 35 H 18 Blood Pressure Pulse Oximetry 100 95 01/26/18 20:14 01/26/18 21:45 01/26/18 22:00 Temperature 97.3 F L Pulse Rate 60 Respiratory Rate 22 Blood Pressure 107/68 Pulse Oximetry 100 100 01/26/18 23:00 01/26/18 23:21 01/27/18 00:00 Temperature Pulse Rate 66 68 Respiratory Rate 33 H 25 H 15 Blood Pressure 105/69 Pulse Oximetry 94 L 100 01/27/18 00:32 01/27/18 01:00 01/27/18 02:00 Temperature Pulse Rate 80 68 72 Respiratory Rate 36 H 17 22 Blood Pressure 99/65 L 98/67 L 100/64 Pulse Oximetry 99 100 93 L 01/27/18 03:00 01/27/18 04:00 01/27/18 04:59 Temperature 97.2 F L Pulse Rate 62 72 Respiratory Rate 13 16 25 H Blood Pressure 97/63 L 102/63 Pulse Oximetry 99 99 01/27/18 05:00 01/27/18 06:00 Temperature Pulse Rate 50 L 58 L Respiratory Rate 16 14 Blood Pressure 97/62 L 103/67 Pulse Oximetry 100 100 Intake & Output 01/26/18 01/27/18 01/27/18 18:59 06:59 18:59 Intake Total 880 / 880 980 / 980 Output Total 450 / 450 450 / 450 Balance 430 / 430 530 / 530 Weight 72.4 kg Intake: IV 400 / 400 100 / 100 Maxipime Inj 2,000 MG In NS Inj 200 / 200 100 / 100 100 ML @ 200 mls/hr IV.SIG Q8HR MATTHEW Rx#:[id number] Vancomycin Inj 1 gm In 200 ml @ 200 / 200 200 mls/hr IV.SIG Q18H MATTHEW Rx# :[id number] Oral 480 / 480 480 / 480 Other 400 / 400 Output: Urine 450 / 450 Urine Amount (Catheter) 450 / 450 Indwelling Urethral Catheter 450 / 450 Other: # Bowel Movements 0 - Routine HEENT Exam Head: Present: normocephalic, atraumatic Eye: Present: EOMI, PERRL ENT: Present: mucous membranes moist - Routine Respiratory Exam Present: decreased breath sounds, distant breath sounds Comments: Right chest wounds have been dressed - Routine Cardiovascular Exam Present: RRR, S1, S2 - Routine Abdominal Exam Present: soft, normoactive bowel sounds - Routine Extremities Exam Present: full ROM, pulses intact - Routine Skin Exam Comments: Skin discoloration due to leprosy medication - Routine Neurological Exam Present: alert, oriented X3, CN II-XII intact, normal speech - Detailed Neurological Exam: Coma Scale Eye Opening: Spontaneous Verbal Response: Oriented Motor Response: Obey commands Lacy Coma Scale Total: 15 - Urinary Catheter Management Indwelling Urethral Catheter Cath placed during this visit: no Urethral indwelling: Yes Reason for continuing: Acute urinary retention Results - Labs CBC & Chem 7: 01/25/18 06:00 01/26/18 04:25 Assessment and Plan - Assessment (1) Severe sepsis Code(s): A41.9 - Sepsis, unspecified organism; R65.20 - Severe sepsis without septic shock Status: Acute Plan: Secondary to complicated pneumonia Patient with 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 Per patient recent cultures of the open wound did show MRSA Patient will continue with IV cefepime, vancomycin and azithromycin Follow-up with ID and pulmonary Continue to support emphysematous lungs (2) Anemia Code(s): D64.9 - Anemia, unspecified Status: Acute Plan: Status post 1 unit packed red blood cells Patient with severe iron deficiency status post IV iron infusion Hemoglobin has dropped to 8.7, recheck in am Possible GI bleed (3) Alcohol dependence Code(s): F10.20 - Alcohol dependence, uncomplicated Status: Acute Plan: Currently stable without signs of withdrawal Xanax as needed (4) COPD exacerbation Code(s): J44.1 - Chronic obstructive pulmonary disease with (acute) exacerbation Status: Acute (5) Hypotension Code(s): I95.9 - Hypotension, unspecified Status: Acute Plan: Stable, and baseline hypotension is tolerated and asymptomatic (6) Malnutrition Code(s): E46 - Unspecified protein-calorie malnutrition Status: Acute Plan: Continue with dietary supplement Dietary and nutritional consult appreciated (7) Urinary retention Code(s): R33.9 - Retention of urine, unspecified Status: Acute (8) Atypical chest pain Code(s): R07.89 - Other chest pain Status: Acute Plan: Likely secondary to GI symptoms Upper endoscopy scheduled Saturday for GI consult Continue Carafate, nystatin, Maalox and Protonix twice daily - Plan Follow clinically Likely home with home health care when stable
--- NOTE | 2018-01-27 16:39 | P.PNID ---
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, has had prior RUlobectomy Follow at [facility], has ID and his surgeon Has had multiple surgeries at [facility], last one ?6 months Gets wound care to his 2 fistula everyday by his home health nurse On Azithro 500 + clofazimine 100 daily for 2 yrs for JUMA infection (?) No O2 @ home Notes reviewed Breathing is better Main complaint is odynophagia GI evaluating patient I reviewed his records from his other physicians No fever had dressing change to his 2 fistulous tracts in R back CXR 01/23 - infiltrates on L side looks less dense, the ones on R looks same BC negative Antibiotics: Vancomycin Cefepime Clofazimine Azithromycin Lines: PIV Past Medical History: COPD GERD History of neck and severe right lung infection requiring right upper lobectomy He has had multiple surgical procedures done at [facility], details not clear Anxiety History of JUMA infection of the lung Previous Pseudomonas infection Per patient positive MRSA culture from his chest wound BPH Past Surgical History Right upper lobe lobectomy, multiple surgeries on the right lung Allergies/Adverse Reactions: Allergies No Known Allergies Allergy (Unknown, Uncoded 01/20/18 19:41) Objective Vital Signs 01/26/18 17:00 01/26/18 18:00 01/26/18 20:04 Temperature Pulse Rate 62 84 Respiratory Rate 19 35 H 18 Blood Pressure Pulse Oximetry 100 95 01/26/18 20:14 01/26/18 21:45 01/26/18 22:00 Temperature 97.3 F L Pulse Rate 60 Respiratory Rate 22 Blood Pressure 107/68 Pulse Oximetry 100 100 01/26/18 23:00 01/26/18 23:21 01/27/18 00:00 Temperature Pulse Rate 66 68 Respiratory Rate 33 H 25 H 15 Blood Pressure 105/69 Pulse Oximetry 94 L 100 01/27/18 00:32 01/27/18 01:00 01/27/18 02:00 Temperature Pulse Rate 80 68 72 Respiratory Rate 36 H 17 22 Blood Pressure 99/65 L 98/67 L 100/64 Pulse Oximetry 99 100 93 L 01/27/18 03:00 01/27/18 04:00 01/27/18 04:59 Temperature 97.2 F L Pulse Rate 62 72 Respiratory Rate 13 16 25 H Blood Pressure 97/63 L 102/63 Pulse Oximetry 99 99 01/27/18 05:00 01/27/18 06:00 01/27/18 08:00 Temperature Pulse Rate 50 L 58 L Respiratory Rate 16 14 Blood Pressure 97/62 L 103/67 Pulse Oximetry 100 100 100 01/27/18 11:00 01/27/18 12:00 Temperature Pulse Rate Respiratory Rate Blood Pressure Pulse Oximetry 90 L 94 L Intake & Output 01/26/18 01/27/18 01/27/18 18:59 06:59 18:59 Intake Total 880 / 880 980 / 980 Output Total 450 / 450 450 / 450 Balance 430 / 430 530 / 530 Weight 72.4 kg Intake: IV 400 / 400 100 / 100 Maxipime Inj 2,000 MG In NS Inj 200 / 200 100 / 100 100 ML @ 200 mls/hr IV.SIG Q8HR MATTHEW Rx#:[id number] Vancomycin Inj 1 gm In 200 ml @ 200 / 200 200 mls/hr IV.SIG Q18H MATTHEW Rx# :[id number] Oral 480 / 480 480 / 480 Other 400 / 400 Output: Urine 450 / 450 Urine Amount (Catheter) 450 / 450 Indwelling Urethral Catheter 450 / 450 Other: # Bowel Movements 0 Lab - Hematology Results 01/25/18 06:00 WBC 4.9 RBC 2.92 L Hgb 8.7 L Hct 25.8 L MCV 88.5 MCH 29.9 MCHC 33.8 RDW 18.4 H Plt Count 261 MPV 7.5 Neut % (Auto) 83.4 H Lymph % (Auto) 10.1 [place] % (Auto) 6.1 Eos % (Auto) 0.2 Baso % (Auto) 0.2 Neut # (Auto) 4.1 Lymph # (Auto) 0.5 L [place] # (Auto) 0.3 Eos # (Auto) 0.0 Baso # (Auto) 0.0 CBC Comment DIFF FINAL Lab - Chemistry Results 01/23/18 01/24/18 01/24/18 16:20 04:20 04:20 Sodium Potassium Chloride Carbon Dioxide Anion Gap BUN Creatinine 0.86 Estimated GFR 90 Random Glucose Calcium Magnesium 2.2 Troponin I LESS THAN 0.02 L 01/25/18 01/26/18 10:30 04:25 Sodium 137 137 Potassium 4.4 4.2 Chloride 103 103 Carbon Dioxide 28.3 29.7 Anion Gap 6 4 L BUN 19 H 17 Creatinine 0.86 0.76 Estimated GFR 90 Greater than 89 Random Glucose 127 H 104 Calcium 8.0 L 7.6 L Magnesium Troponin I Imaging: Abdomen X-Ray 01/23/18 1508 Signed Impressions: CONCLUSION: 1. Questionable colonic wall thickening near the splenic flecture. 2. Marginally distended air-filled small bowel loops in the right abdomen may reflect mild adynamic ileus. Chest X-Ray 01/23/18 0000 Signed Impressions: CONCLUSION: 1. Stable examination. 2. Redemonstration of significant volume loss and airspace consolidation throu ghout the right lung with chronic postsurgical and pleural changes. 3. Stable small right sided pneumothorax. CT Angiography 01/20/18 1809 Signed Impressions: CONCLUSION: 1. No PE is identified. 2. As demonstrated on the recent chest x-ray there is severe left lung airspac e consolidation primarily in the mid and upper lung zones. There is background of severe emphysema with small left pleural effusion. 3. There are chronic changes in the right lung with significant volume loss an d traction bronchiectasis. There are 2 pleural cutaneous fistula is on the righ t with some type of material within the right pleural space. This is likely chr onic postsurgical change and I do not appreciate any acute finding on the right . 4. Mediastinal lymphadenopathy, increased in size from the 2013 study. Chest X-Ray 01/20/18 1805 Signed Impressions: CONCLUSION: 1. New moderate to severe airspace consolidation in the left mid lung. An infe ctious process could have this appearance. Suggest follow-up to confirm resolut ion. 2. Chronic volume loss and pleural parenchymal opacity in the right lung with chronic right chest wall changes. The appearance is similar to the prior examin ations with a slightly increased degree of volume loss. There is lucency in the periphery of the right hemithorax in the upper and lower portions which may re present chronic pleural air versus pneumothorax. Physical Exam: Physical Exam GENERAL: awake and alert, mild SOB at rest SKIN: Warm and dry. Generalized diffuse intense brown- red skin discoloration expected in pen[facility]entiary clofazimine use + b/l forearms ecchymoses EYES: [place] conjunctiva. No petechia or hemorrhage. Pupils equal, round and reactive to light. Extraocular movements full and intact. No scleral icterus. No injection or drainage. EARS, NOSE AND THROAT: Nose without bleeding or purulent nasal discharge. No sinus tenderness. Mucous membranes pink and moist. Mild oral thrush NECK: Trachea midline. Supple and not tender, no meningeal signs CARDIOVASCULAR: Regular rate and rhythm. No murmurs, rubs or gallops heard RESPIRATORY: Has scars of his R chest. He has markedly decreased breath sounds on the R side, and coarse breath sound on his L side He has marked deformities of the R side chest postsurgically ABDOMEN: Soft, non-tender, nondistended. Bowel sounds present and normoactive. No guarding. No rebound. No organomegaly. : yeung in place with reddish - brown light discolored urine EXTREMITIES: No clubbing, cyanosis, or edema. No calf tenderness. Well perfused and warm. NEUROLOGICAL: Grossly non-focal PSYCHIATRIC: Normal affect, calm and cooperative. LINE: No evidence of infection Assessment and Plan - Plan IMPRESSION Pneumonia L Patient with known chronic infection on his R chest, and has had multiple surgeries done, has chronic fistula COPD BPH, yeung in place Requiring O2 due to extensive infiltrates on L lung - last CXR looks less dense Odynophagia RECOMMENDATION Switch to po Doxy and Cipro - give 28 days Continue Zithromax and Clofazimine GI evaluating his odynophagia - consider trail of diflucan CXR Follow-up with his primary ID at [facility] D/W RN D/W Dr Anastasia Rome ([facility])
--- NOTE | 2018-01-27 17:43 | XR ---
EXAM DATE: 01/27/2018 5:36 PM EDT AGE/SEX: 62 years / Male INDICATIONS: Evaluate for pneumonia. CLINICAL DATA: This is the patient's subsequent encounter. Patient reports that signs and symptoms h ave been present for 1 week and indicates a pain score of 0/10. MEDICAL/SURGICAL HISTORY: Emphysema. Chronic obstructive pulmonary disease. Right lung JUMA. . Right upper lobectomy. Previous right chest tube. COMPARISON: [facility], CHEST PA & LAT, 01/23/2018. . FINDINGS: There is exam is compared to the prior study. There continues to be a right-sided pneumothorax with a pproximately 3.3 cm of separation at the apex. This is not significantly changed compared to the prio r study. There continues to be some collapse of the right lung without significant change. There is c hronic interstitial changes throughout the left lung without significant change. No significant pleur al effusions. The heart size is enlarged but stable. The bony structures are stable. CONCLUSION: 1. There continues to be a right-sided pneumothorax with 3.3 cm separation at the apex without signi ficant change compared to the prior exam. 2. There continues to be some collapse of the right lung without significant change. 3. There continues to be interstitial infiltrates throughout the left lung without significant thomas e. Electronically signed by: Jesús Stubbs MD 01/27/2018 5:42 PM EDT
[2018-01-27] MEDS: Nystatin Liq 500,000 UNIT/5 ML UDC SWISH-SWAL SCH (20:02)
[2018-01-27] MEDS: Ciprofloxacin 250 MG Tablet PO SCH (20:31)
--- NOTE | 2018-01-27 20:50 | P.PNPL ---
Subjective Interval history: 62 YOWM with M.abcessus infection, s/p thoracotomy, Pleuro cutaneous Fistula has dysphagia Seen by GI Weaned to 2LNC Physical Exam Vital signs: Vital Signs 01/26/18 21:45 01/26/18 22:00 01/26/18 23:00 Temperature Pulse Rate 60 66 Respiratory Rate 22 33 H Blood Pressure 107/68 105/69 Pulse Oximetry 100 100 94 L 01/26/18 23:21 01/27/18 00:00 01/27/18 00:32 Temperature Pulse Rate 68 80 Respiratory Rate 25 H 15 36 H Blood Pressure 99/65 L Pulse Oximetry 100 99 01/27/18 01:00 01/27/18 02:00 01/27/18 03:00 Temperature Pulse Rate 68 72 62 Respiratory Rate 17 22 13 Blood Pressure 98/67 L 100/64 97/63 L Pulse Oximetry 100 93 L 99 01/27/18 04:00 01/27/18 04:59 01/27/18 05:00 Temperature 97.2 F L Pulse Rate 72 50 L Respiratory Rate 16 25 H 16 Blood Pressure 102/63 97/62 L Pulse Oximetry 99 100 01/27/18 06:00 01/27/18 07:00 01/27/18 08:00 Temperature 98.1 F Pulse Rate 58 L 52 L 52 L Respiratory Rate 14 24 20 Blood Pressure 103/67 103/67 99/66 L Pulse Oximetry 100 100 100 01/27/18 09:00 01/27/18 10:00 01/27/18 11:00 Temperature 98.0 F Pulse Rate 64 55 L 60 Respiratory Rate 20 16 Blood Pressure 105/52 L 102/60 110/69 Pulse Oximetry 100 90 L 01/27/18 12:00 01/27/18 13:00 01/27/18 14:00 Temperature Pulse Rate 70 69 74 Respiratory Rate 15 Blood Pressure 113/72 110/59 L 106/74 Pulse Oximetry 94 L 98 01/27/18 15:00 01/27/18 18:00 01/27/18 20:01 Temperature 98.0 F Pulse Rate 60 61 Respiratory Rate 25 H Blood Pressure 115/82 108/69 Pulse Oximetry 100 100 Intake & Output 01/27/18 01/27/18 01/28/18 06:59 18:59 06:59 Intake Total 980 / 980 Output Total 450 / 450 900 / 900 Balance 530 / 530 -900 / -900 Weight 72.4 kg Intake: IV 100 / 100 Maxipime Inj 2,000 MG In NS Inj 100 / 100 100 ML @ 200 mls/hr IV.SIG Q8HR MATTHEW Rx#:[id number] Oral 480 / 480 Other 400 / 400 Output: Urine Amount (Catheter) 450 / 450 900 / 900 Indwelling Urethral Catheter 450 / 450 900 / 900 Thin built WM, mild sob CHEST: Decreased BS right has chest wall wound, pleurocutaneous fistula CVS: S1S2 Normal ABDOMEN: Soft non tender SB Positive - Urinary Catheter Management Indwelling Urethral Catheter Cath placed during this visit: no Urethral indwelling: Yes Reason for continuing: Acute urinary retention Assessment and Plan - Plan IMPRESSION: Pneumonia COPD M.abcessus infection Pleurocutaneous fistula Dysphagia PLAN: Cont Abx per ID Aerosol nebs Supplement 02 DW Pt, he will be at increased risk for complications of anesthesia, he wants to proceed with EGD/ dilation
[2018-01-28] MEDS: Nystatin Liq 500,000 UNIT/5 ML UDC SWISH-SWAL SCH (05:12)
[2018-01-28 09:37] LABS: Hemoglobin 9.9 gm/dL (13.0-17.0); Mean Corpuscular Hemoglobin 28.7 pg (27.0-34.0); Mean Corpuscular Volume 89.7 fL (80.0-100.0); Mean Platelet Volume 7.4 fL (7.0-11.0); Platelet Count 400 th/mm3 (150-450); Red Blood Count 3.46 mil/mm3 (4.50-5.90); Red Cell Distribution Width 17.5 % (11.6-17.2); White Blood Count 6.3 th/mm3 (4.0-11.0)
[2018-01-28] MEDS: Tiotropium Bromide 18 MCG/ACT Inhaler INH SCH (09:37)
[2018-01-28] MEDS: Ciprofloxacin 250 MG Tablet PO SCH (09:39)
[2018-01-28] MEDS: Lactobacillus Acidophilus/L. Spores Tablet PO SCH (09:40)
[2018-01-28] MEDS: Azithromycin 250 MG Tablet PO SCH (09:40)
[2018-01-28] MEDS: Ferrous Sulfate 325 MG Tablet PO SCH (09:41)
[2018-01-28] MEDS: MethylPREDNISolone Sod Succinate Inj 40 MG/ML Vial IV.PUSH SCH (09:42)
[2018-01-28] MEDS: Budesonide-Formoterol 160/4.5 MCG 6 GM Inhaler INH SCH (09:47)
[2018-01-28] MEDS: CLOFAZIMINE PO SCH (09:58)
[2018-01-28] MEDS: OMEPRAZOLE 20 MG PO SCH (09:59)
--- NOTE | 2018-01-28 10:04 | P.PNIM ---
Physical Exam Vital signs: Vital Signs 01/27/18 10:00 01/27/18 10:05 01/27/18 11:00 Temperature 98.0 F Pulse Rate 68 62 78 Respiratory Rate 23 28 H 46 H Blood Pressure 102/60 102/60 110/69 Pulse Oximetry 98 99 90 L 01/27/18 12:00 01/27/18 13:00 01/27/18 14:00 Temperature Pulse Rate 70 62 72 Respiratory Rate 19 35 H Blood Pressure 113/72 110/59 L 106/74 Pulse Oximetry 99 99 93 L 01/27/18 15:00 01/27/18 16:00 01/27/18 17:00 Temperature Pulse Rate 70 56 L Respiratory Rate 31 H 23 Blood Pressure 115/82 Pulse Oximetry 98 100 90 L 01/27/18 18:00 01/27/18 18:07 01/27/18 19:00 Temperature 98.0 F Pulse Rate 61 80 70 Respiratory Rate 33 H 24 Blood Pressure 108/69 99/66 L Pulse Oximetry 100 99 01/27/18 20:00 01/27/18 20:01 01/27/18 20:18 Temperature 97.3 F L Pulse Rate 70 74 Respiratory Rate 30 H 25 H Blood Pressure 103/69 Pulse Oximetry 93 L 01/27/18 20:52 01/27/18 21:00 01/27/18 22:00 Temperature Pulse Rate 72 68 Respiratory Rate 18 21 Blood Pressure 91/58 L 99/61 L Pulse Oximetry 96 100 98 01/27/18 22:38 01/27/18 23:00 01/27/18 23:43 Temperature Pulse Rate 68 Respiratory Rate 18 19 20 Blood Pressure 98/63 L Pulse Oximetry 98 01/28/18 00:00 01/28/18 01:00 01/28/18 02:00 Temperature 97.6 F Pulse Rate 70 58 L 64 Respiratory Rate 31 H 19 32 H Blood Pressure 96/63 L 104/64 101/65 Pulse Oximetry 96 96 96 01/28/18 03:00 01/28/18 03:37 01/28/18 04:00 Temperature Pulse Rate 56 L 56 L Respiratory Rate 13 25 H 14 Blood Pressure 104/65 100/68 Pulse Oximetry 99 100 01/28/18 05:00 01/28/18 06:00 01/28/18 07:00 Temperature 98.2 F Pulse Rate 60 56 L 69 Respiratory Rate 13 11 L 22 Blood Pressure 97/61 L 93/63 L 106/69 Pulse Oximetry 99 98 95 01/28/18 07:30 01/28/18 08:00 Temperature Pulse Rate 48 L Respiratory Rate 20 17 Blood Pressure 106/61 Pulse Oximetry 100 97 Intake & Output 01/27/18 01/28/18 01/28/18 18:59 06:59 18:59 Intake Total 480 / 480 Output Total 900 / 900 350 / 350 Balance -900 / -900 130 / 130 Weight 69.5 kg Intake: Oral 480 / 480 Output: Urine Amount (Catheter) 900 / 900 350 / 350 Indwelling Urethral Catheter 900 / 900 350 / 350 - Urinary Catheter Management Indwelling Urethral Catheter Cath placed during this visit: no Urethral indwelling: Yes Reason for continuing: Chronic Urinary Retention Results - Labs CBC & Chem 7: 01/28/18 09:20 01/26/18 04:25 Laboratory Results - last 24 hr 01/28/18 09:20 WBC 6.3 RBC 3.46 L Hgb 9.9 L Hct 31.0 L MCV 89.7 MCH 28.7 MCHC 32.0 RDW 17.5 H Plt Count 400 MPV 7.4 - Imaging Impressions Chest X-Ray 01/27/18 00:00 CONCLUSION: 1. There continues to be a right-sided pneumothorax with 3.3 cm separation at the apex without significant change compared to the prior exam. 2. There continues to be some collapse of the right lung without significant change. 3. There continues to be interstitial infiltrates throughout the left lung without significant change. Assessment and Plan - Assessment (1) Severe sepsis Code(s): A41.9 - Sepsis, unspecified organism; R65.20 - Severe sepsis without septic shock Status: Acute Plan: Secondary to complicated pneumonia Patient with history of JUMA and MRSA in the right lung status post resection and with pleurocutaneous fistula lobectomy Per patient recent cultures of the open wound did show MRSA Patient will continue with current po regimen Cipro and doxycycline for 28 days (Continue home Zithromax and Clofazimine) Follow-up with ID and pulmonary in [place] Continue to support emphysematous lungs (2) Anemia Code(s): D64.9 - Anemia, unspecified Status: Acute Plan: Status post 1 unit packed red blood cells Patient with severe iron deficiency status post IV iron infusion Hemoglobin has stabilized Possible GI bleed, endoscopy pending (3) Alcohol dependence Code(s): F10.20 - Alcohol dependence, uncomplicated Status: Acute Plan: Currently stable without signs of withdrawal Xanax as needed (4) COPD exacerbation Code(s): J44.1 - Chronic obstructive pulmonary disease with (acute) exacerbation Status: Acute (5) Hypotension Code(s): I95.9 - Hypotension, unspecified Status: Acute Plan: Stable, and baseline hypotension is tolerated and asymptomatic (6) Malnutrition Code(s): E46 - Unspecified protein-calorie malnutrition Status: Acute Plan: Continue with dietary supplement Dietary and nutritional consult appreciated (7) Urinary retention Code(s): R33.9 - Retention of urine, unspecified Status: Acute (8) Atypical chest pain Code(s): R07.89 - Other chest pain Status: Acute Plan: Likely secondary to GI symptoms (cardiac work up negative) higher risk Upper endoscopy today per GI consult, but patient has declined this Continue Carafate, nystatin, Maalox and Protonix twice daily consider trail of diflucan - Plan Follow clinically Likely home with home health care when stable Discharge Planning: Walk test Follow-up (2) Anemia Qualifiers: Anemia type: iron deficiency
--- NOTE | 2018-01-28 10:27 | P.DCO ---
- Home Health Nursing Order: Medical education, Signs/symptoms of disease process, Wound care and dressing changes - Certification I have seen patient Miguel Burton on 01/28/18. My clinical findings support the need for the requested home health care services because: Limited mobility due to disease progression, Deconditioned with increased weakness, High risk of falls, Infection with risk of complications I certify that my clinical findings support that this patient is homebound because: Hx COPD - exertion dyspnea/weakness, Unsteady gait/balance
[2018-01-28] MEDS ORDERED: Pharmacy Ordered Lab Info OTHER ONE (11:45)
[2018-01-28] MEDS: Sucralfate Liq 1 GM/10 ML UDC PO SCH ×3 (12:14→12:15)
--- NOTE | 2018-01-28 16:37 | P.DS ---
Date of admission: 01/20/18 19:23 Primary care physician: UNKNOWN Brief History from admission: This patient is a 62-year-old gentleman with a comp gated pulmonary history. Baseline disease includes an cephalo-emphysema for which she does take inhalers and nebulizer, however the patient had a severe infection some years ago and had been in chronic follow-up at [facility] for this. 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 He has been on Bactrim and reports he has also been on clofazimine and azithromycin. Patient had increasing pain over the last week and a half he says he fell about a week and a half ago and the pain became quite severe. Pain is on the left chest wall and worse with deep breathing. He is increasingly short of breath with associated cough and chest congestion. He thought he broke some ribs. He took his home Lortab without relief. He came to the emergency room for further evaluation. Patient was quite hypoxemic on arrival. Was in respiratory failure with evidence of sepsis secondary to hypotension, tachycardia and was noted to have a PO2 of 82 on 6 L by blood gas. Patient has decreased breath sounds on exam. Right chest wall is significantly deformed post surgical treatment. He has large open wounds which he says are MRSA positive. Patient notes no fever. He has had a cough but notes that it is not purulent. He has been admitted to the hospital for severe sepsis and respiratory failure. Patient also notes he has increasing anxiety as he drinks quite a bit of alcohol. DS: Diagnosis - Discharge Diagnosis (1) Pneumonia Status: Acute (2) Atypical chest pain Status: Acute (3) Severe sepsis Status: Acute (4) Anemia Status: Chronic (5) Alcohol dependence Status: Chronic (6) COPD exacerbation Status: Chronic (7) Hypotension Status: Chronic (8) Malnutrition Status: Chronic (9) Urinary retention Status: Acute DS: Medications - Discharge Medications Prescriptions: budesonide-formoterol [Symbicort] 2 puff INH BID #1 g ciprofloxacin HCl 750 mg PO Q12HR 28 Days tab doxycycline hyclate 100 mg PO Q12H #56 tab prednisone 20 mg PO DIRECTED #20 tab sucralfate 1 gm PO ACHS #60 ml DS: Summary Hospital Course: Patient is a 62-year-old gentleman came in respiratory failure secondary to COPD exacerbation and left-sided pneumonia. Patient was treated with antibiotics covering broad-spectrum sources. Cultures were negative. He was seen by infectious disease and pulmonary specialty team. Patient did have some dyspepsia which were quite severe and patient was seen by GI who recommended endoscopy but the patient did refuse this. The patient did also have severe sepsis which resolved. He has chronic hypotension which was asymptomatic. He was anemic and required a unit of packed red blood cells as well as iron infusions. Again gastroenterology recommended upper endoscopy with the patient did refuse this. He had some urinary retention initially and this resolved. He was discharged home on room air and to continue his course of antibiotics and to follow-up at [facility]. - Time Spent with Patient Total time spent providing and/or coordinating discharge services: Greater than 30 minutes Exam Vital signs: Vital Signs 01/27/18 17:00 01/27/18 18:00 01/27/18 18:07 Temperature 98.0 F Pulse Rate 61 80 Respiratory Rate 33 H Blood Pressure 108/69 Pulse Oximetry 90 L 100 01/27/18 19:00 01/27/18 20:00 01/27/18 20:01 Temperature 97.3 F L Pulse Rate 70 70 Respiratory Rate 24 30 H 25 H Blood Pressure 99/66 L 103/69 Pulse Oximetry 99 93 L 01/27/18 20:18 01/27/18 20:52 01/27/18 21:00 Temperature Pulse Rate 74 72 Respiratory Rate 18 Blood Pressure 91/58 L Pulse Oximetry 96 100 01/27/18 22:00 01/27/18 22:38 01/27/18 23:00 Temperature Pulse Rate 68 68 Respiratory Rate 21 18 19 Blood Pressure 99/61 L 98/63 L Pulse Oximetry 98 98 01/27/18 23:43 01/28/18 00:00 01/28/18 01:00 Temperature 97.6 F Pulse Rate 70 58 L Respiratory Rate 20 31 H 19 Blood Pressure 96/63 L 104/64 Pulse Oximetry 96 96 01/28/18 02:00 01/28/18 03:00 01/28/18 03:37 Temperature Pulse Rate 64 56 L Respiratory Rate 32 H 13 25 H Blood Pressure 101/65 104/65 Pulse Oximetry 96 99 01/28/18 04:00 01/28/18 05:00 01/28/18 06:00 Temperature Pulse Rate 56 L 60 56 L Respiratory Rate 14 13 11 L Blood Pressure 100/68 97/61 L 93/63 L Pulse Oximetry 100 99 98 01/28/18 07:00 01/28/18 07:30 01/28/18 08:00 Temperature 98.2 F Pulse Rate 69 48 L Respiratory Rate 22 20 17 Blood Pressure 106/69 106/61 Pulse Oximetry 95 100 97 01/28/18 09:00 01/28/18 09:46 01/28/18 10:00 Temperature Pulse Rate 72 56 L 64 Respiratory Rate 29 H 23 28 H Blood Pressure 95/65 L 103/62 103/65 Pulse Oximetry 90 L 92 L 90 L 01/28/18 11:00 01/28/18 12:00 01/28/18 12:13 Temperature Pulse Rate 64 74 Respiratory Rate 25 H 30 H 16 Blood Pressure 93/63 L 101/68 Pulse Oximetry 90 L 90 L 01/28/18 13:00 Temperature Pulse Rate 76 Respiratory Rate 24 Blood Pressure 100/64 Pulse Oximetry 91 L Intake & Output 01/27/18 01/28/18 01/28/18 18:59 06:59 18:59 Intake Total 480 / 480 Output Total 900 / 900 350 / 350 1300 / 1300 Balance -900 / -900 130 / 130 -1300 / -1300 Weight 69.5 kg Intake: Oral 480 / 480 Output: Urine Amount (Catheter) 900 / 900 350 / 350 1300 / 1300 Indwelling Urethral Catheter 900 / 900 350 / 350 1300 / 1300 Other: Date of Last Bowel Movement 01/28/18 Narrative: GENERAL: Patient calm resting and without complaints, pigmentation secondary to clofazimine SKIN: Warm and dry. No rashes or ecchymotic injuries EYES: Pupils equal and round. No scleral icterus. No injection or drainage. ENT: External ear exam normal. No acute nasal bleeding or discharge. Mucous membranes pink and moist. CARDIOVASCULAR: Regular rate and rhythm. No murmurs gallops or rubs appreciated RESPIRATORY: Right chest pleural cutaneous fistula, good air flow and effort without accessory muscle use. Clear to auscultation. Breath sounds equal bilaterally. GASTROINTESTINAL: Abdomen soft, non-tender, nondistended. Hepatic and splenic margins not palpable. MUSCULOSKELETAL: Extremities without clubbing, cyanosis, or edema. No obvious deformities. NEUROLOGICAL: Awake and alert. No obvious cranial nerve deficits. Motor grossly within normal limits. Five out of 5 muscle strength in the arms and legs. Normal speech. Results Procedures completed during hospitalization: none Labs on day of discharge: Labs from last 24 hours 01/28/18 09:20 WBC 6.3 RBC 3.46 L Hgb 9.9 L Hct 31.0 L MCV 89.7 MCH 28.7 MCHC 32.0 RDW 17.5 H Plt Count 400 MPV 7.4 - Impressions ITS Impressions Chest X-Ray 01/27/18 00:00 CONCLUSION: 1. There continues to be a right-sided pneumothorax with 3.3 cm separation at the apex without significant change compared to the prior exam. 2. There continues to be some collapse of the right lung without significant change. 3. There continues to be interstitial infiltrates throughout the left lung without significant change. Discharge Plan - Discharge Disposition Patient Disposition: W/Home Health Service - Discharge Condition Condition: Stable - Discharge Order Discharge Orders: Discharge Order (Routine); Ordered 01/28/18 Ordered By: Jessy Rome - Discharge Details Anticipated Discharge Date: 01/28/18 Discharge Comment: [facility] - Physicians Team Primary Care Provider: UNKNOWN, Attending Provider: Sandeep Vogel Other Providers: Farhan Mcknight MD ; Leta Varela MD ; Mercy Montiel MD - Rxs /Orders / Referrals /Forms Prescriptions: New azithromycin 250 mg Tablet 500 mg PO DAILY RF: 0 budesonide-formoterol [Symbicort] 160-4.5 mcg/actuation Hfa Aerosol Inhaler 2 puff INH BID Qty: 1 RF: 0 ciprofloxacin HCl 250 mg Tablet 750 mg PO Q12HR 28 Days RF: 0 doxycycline hyclate 100 mg Tablet 100 mg PO Q12H Qty: 56 RF: 0 ferrous sulfate [FeroSul] 325 mg (65 mg iron) Tablet 325 mg PO DAILY RF: 0 prednisone 20 mg Tablet 20 mg PO DIRECTED Qty: 20 RF: 0 sucralfate 100 mg/mL Suspension 1 gm PO ACHS Qty: 60 RF: 0 tamsulosin 0.4 mg Capsule,Extended Release 24hr 0.4 mg PO BID RF: 0 tiotropium bromide [Spiriva with HandiHaler] 18 mcg Capsule, W/Inhalation Device 18 mcg INH DAILY RF: 0 Continue albuterol sulfate 90 mcg/actuation Aerosol Powdr Breath Activated 2 puff INHALATION Q4-6H PRN (Reason: Shortness Of Breath) alprazolam 1 mg Tablet 1 mg PO BID PRN (Reason: Anxiety) atorvastatin 20 mg Tablet 20 mg PO DAILY docusate sodium 100 mg Capsule 100 mg PO BID fluticasone-salmeterol [Advair Diskus] 250-50 mcg/dose Blister With Device 1 puff Inhalation BID hydrocodone-acetaminophen 10-325 mg Tablet 1 tab PO Q4H PRN (Reason: Pain (Scale Score 1-3)) ipratropium bromide 42 mcg (0.06 %) [place],Non-Aerosol 1 spray INTRANASAL QID omeprazole 20 mg Capsule,Delayed Release(Dr/Ec) 20 mg PO DAILY tiotropium bromide 18 mcg Capsule, W/Inhalation Device 18 mcg INHALATION DAILY zinc gluconate 50 mg Tablet 50 mg PO DAILY Discontinued ferrous sulfate 325 mg (65 mg iron) Tablet 325 mg PO DAILY sulfamethoxazole-trimethoprim 800-160 mg Tablet 1 tab PO BID tamsulosin 0.4 mg Capsule,Extended Release 24hr 0.4 mg PO DAILY Referrals: UNKNOWN, [Primary Care Provider] - See Instructions
[2018-01-28 17:03] VITALS: BP 110/68; PULSE 68; RESP 20; TEMP 98.3; O2SAT 95
[2018-01-28] MEDS ORDERED: predniSONE 20 MG Tablet PO SCH (21:00)
== END 2018-01-28 15:58 | disposition home health service (06) ==
LOC: PHICU 19:23
PROVIDERS: ADMIT Internal Medicine; ATTEND Internal Medicine